=== PATIENT | male | born 1940 | race Caucasian/White ===

== ENCOUNTER 2016-10-16 17:22 | Emergency (ER) | payer MEDICARE, BC ==
[~2016-10-16 17:22] MED LIST: ALLOPURINOL100 MG PO; FLOMAX DPS0.4 MG PO; FUROSEMIDE40 MG PO; GLUCOTROL XL DPS5 MG PO; GUAIFENESIN ER600 MG PO; LEVAQUIN DPS500 MG PO; LOPRESSOR DPS50 MG PO; PEPCID DPS20 MG PO; TESSALON PERLE100 M1 PO; XARELTO20 MG PO; ZOCOR DPS20 MG PO; ZOFRAN4 MG PO
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
== END 2016-10-16 20:11 | disposition home or self-care (01) ==
LOC: ER 17:22
DX: R53.1 Weakness (principal); E11.649 Type 2 diabetes mellitus with hypoglycemia without coma; I10 Essential (primary) hypertension; J44.9 Chronic obstructive pulmonary disease, unspecified; I25.2 Old myocardial infarction; E78.5 Hyperlipidemia, unspecified; Z86.711 Personal history of pulmonary embolism; Z87.891 Personal history of nicotine dependence; Z88.0 Allergy status to penicillin; Z79.84 Long term (current) use of oral hypoglycemic drugs; Z79.899 Other long term (current) drug therapy; Z95.1 Presence of aortocoronary bypass graft; Z90.49 Acquired absence of other specified parts of digestive tract

== ENCOUNTER 2016-10-29 05:42 | Day surgery (SDC) | payer MEDICARE, BC ==
[~2016-10-29] VITALS: Ht 177.8 cm; Wt 109.7 kg
== END 2016-10-29 10:38 | disposition home or self-care (01) ==
LOC: SSS 05:42 → PTH.S 11-12 07:30 → EDSTATUS 11-12 07:30 → SSS 11-12 07:30 → RAD.S 11-12 07:45 → SSS 11-12 07:45
DX: R41.3 Other amnesia (principal); I10 Essential (primary) hypertension; E11.649 Type 2 diabetes mellitus with hypoglycemia without coma; J44.9 Chronic obstructive pulmonary disease, unspecified; I25.2 Old myocardial infarction; E66.9 Obesity, unspecified; Z88.0 Allergy status to penicillin; Z79.899 Other long term (current) drug therapy; Z95.1 Presence of aortocoronary bypass graft; Z90.49 Acquired absence of other specified parts of digestive tract; Z98.890 Other specified postprocedural states